=== PATIENT | female | born 1965 | race Caucasian/White ===

== ENCOUNTER → 2018-12-23 | Outpatient (CLI) | payer BC, OTHER ==
--- NOTE | 2018-12-24 11:29 | Diagnostic Imaging Report ---
INDICATION: Routine screening. COMPARISON: 12/17/2015. TECHNIQUE: 2D and 3D bilateral screening mammography was performed with CAD. FINDINGS: Both breasts are heterogeneously dense, limiting the sensitivity of mammography. The right breast is unremarkable. There is a new circumscribed density in the inner aspect of the left breast at mid to posterior depth approximately 9 cm from the nipple. Ultrasound of this area is recommended. No other masses are seen. No suspicious calcifications are identified. IMPRESSION: Circumscribed density at approximately the 3 o'clock location of the left breast 9 cm from the nipple, new since the prior exam. This has fairly benign features but further evaluation with ultrasound is recommended. ACR BI-RADS Category 0: Incomplete. (Needs additional imaging evaluation). Result letter will be mailed to the patient. Note: At least 10% of breast cancer is not imaged by mammography. Dictated by: Dictated on workstation # [id number]
== END ==
LOC: RAD 15:49
PROVIDERS: ATTEND Nurse Practitioner Primary Care
DX: Z12.31 Encounter for screening mammogram for malignant neoplasm of breast (principal)
CPT/HCPCS: 77067

== ENCOUNTER → 2019-01-05 | Outpatient (CLI) | payer BC ==
--- NOTE | 2019-01-05 18:22 | Diagnostic Imaging Report ---
EXAMINATION: Ultrasound of the left breast limited. INDICATION: Abnormal mammogram. FINDINGS: On this exam, there is a fairly well-defined 0.5 x 0.5 x 0.8 cm avascular hypoechoic area with internal echoes in this region. I suspect that this does correspond to the density seen on the mammogram. This hypoechoic lesion does contain a few internal echoes and I suspect that this is a cyst which has been slightly complicated by infection and/or hemorrhage. Even so, it may prove worthwhile to have a short-term (three-month) follow-up mammogram and ultrasound exam of the left breast for continued evaluation. No other abnormality is identified. IMPRESSION: The newly developed nodular density in the medial aspect of the left breast is felt to represent a slightly complicated cyst. Recommendations as above. ACR BI-RADS Category 3: Probably benign findings. Dictated by: Dictated on workstation # [id number]
== END ==
LOC: RAD 10:08
PROVIDERS: ATTEND Nurse Practitioner Primary Care
DX: R92.2 Inconclusive mammogram (principal)
CPT/HCPCS: 76642

== ENCOUNTER → 2019-01-25 | Outpatient (CLI) | payer BC ==
--- NOTE | 2019-01-25 18:26 | Diagnostic Imaging Report ---
INDICATION: Low back pain, fall. TIME OF EXAM: 05:57 p.m. FINDINGS: There is normal lordotic curvature to the lumbar spine. There is minimal retrolisthesis of L2 on L3 and L3 on L4. Vertebral body heights are maintained. No definite acute compression fracture is identified. Generalized degenerative disc disease is seen with variable disc space narrowing and marginal spurring. IMPRESSION: Lumbar spondylosis. No acute bony abnormality is detected. Dictated by: Dictated on workstation # [id number]
--- NOTE | 2019-01-25 18:30 | Diagnostic Imaging Report ---
INDICATION: Fall and left hip pain. TIME OF EXAM: 6:00 p.m. FINDINGS: Two views of the left hip demonstrate normal femoral acetabular alignment. Joint spaces are well maintained. Femoral head and neck are intact. No fractures are seen. IMPRESSION: No acute bony abnormality is detected. Dictated by: Dictated on workstation # [id number]
== END ==
LOC: RAD 17:35
PROVIDERS: ATTEND Family Medicine
DX: M25.552 Pain in left hip (principal); M47.816 Spondylosis without myelopathy or radiculopathy, lumbar region; W19.XXXA Unspecified fall, initial encounter
CPT/HCPCS: 72100; 73502

== ENCOUNTER → 2019-03-14 | Outpatient (CLI) | payer BC ==
--- NOTE | 2019-03-14 13:09 | Diagnostic Imaging Report ---
PROCEDURE: US Non-OB pelvis comp/trans. TECHNIQUE: Multiple real-time grayscale images were obtained of the pelvis in various projections endovaginally. Transabdominal imaging was also performed. INDICATION: Uterine leiomyoma. COMPARISON: Correlation is made with prior ultrasound from 12/17/2015. FINDINGS: Uterus measures 6.0 x 3.8 x 5.1 cm. Endometrium is 3 mm in thickness. Fibroid in the anterior fundal region is slightly smaller in size on today's exam measuring 1.1 x 0.6 x 1.4 cm. No other uterine masses are seen. Ovaries were not visualized. No adnexal mass or free fluid is seen. IMPRESSION: 1. Uterine fibroid, smaller when compared with exam from 12/17/2015. 2. Nonvisualized ovaries. Dictated by: Dictated on workstation # [id number]
== END ==
LOC: RAD 12:19
PROVIDERS: ATTEND Nurse Practitioner Primary Care
DX: D25.9 Leiomyoma of uterus, unspecified (principal)
CPT/HCPCS: 76830; 76856

== ENCOUNTER → 2020-02-09 | Outpatient (CLI) | payer BC ==
--- NOTE | 2020-02-09 13:02 | Diagnostic Imaging Report ---
INDICATION: Bilateral breast pain. Correlation is made with prior mammogram from 12/23/2018 and 12/17/2015. 2-D and 3-D bilateral diagnostic mammography was performed with CAD. Both breasts remain heterogeneously dense limiting the sensitivity of mammography. Previously noted circumscribed density in the inner left breast is again noted and is similar to perhaps slightly larger when compared with prior exam. No new mass is identified. No malignant appearing microcalcifications are seen. Axillae are unremarkable. IMPRESSION: BI-RADS 0 1. Slight increase in size of circumscribed nodule in the inner left breast when compared to study from one year earlier. This was shown by prior ultrasound to probably represent a complicated cyst and follow-up is recommended. Patient failed to return for follow-up. Ultrasound of this lesion will be performed today. In addition, sonographic evaluation of areas of patient's bilateral breast pain will be performed. ACR BI-RADS Category 0: Incomplete. (Needs additional imaging evaluation). Result letter will be mailed to the patient. Note: At least 10% of breast cancer is not imaged by mammography. Dictated by: Dictated on workstation # [id number]
--- NOTE | 2020-02-09 13:56 | Diagnostic Imaging Report ---
Indication: Bilateral breast pain. In addition, follow-up of previously noted left breast nodule will be performed. Correlation is made with diagnostic mammogram earlier same day as well as prior left breast ultrasound from 01/05/2019. Right breast: Interrogation of the outer right breast was performed at areas of pain. No sonographic abnormality seen. No solid or cystic mass is detected. Left breast: Evaluation of the outer left breast at area of pain was performed. No sonographic abnormality is seen. Medial left breast was evaluated. Previously noted hypoechoic nodule 9:30 location, 7 cm from the nipple is again noted. This does measure slightly larger in size at 10 mm x 7 mm x 7 mm compared with 8 mm x 5 mm x 6 mm. No internal vascularity is seen. No posterior acoustic shadowing is seen. IMPRESSION: BI-RADS Category 4 Slight increase in size of somewhat ill-defined hypoechoic nodule 9:30 location of the left breast, 7; the nipple. Tissue sampling is recommended. This would be amenable to ultrasound-guided core biopsy. ACR BI-RADS Category 4: Suspicious abnormality. Dictated by: Dictated on workstation # [id number]
== END ==
LOC: RAD 11:43
PROVIDERS: ATTEND Nurse Practitioner Primary Care
DX: N63.22 Unspecified lump in the left breast, upper inner quadrant (principal)
CPT/HCPCS: 76642; 77066

== ENCOUNTER → 2020-02-13 | Outpatient (CLI) | payer SELFPAY ==
[~2020-02-13] VITALS: Ht 167.7 cm; Wt 79.1 kg
[~2020-02-13] MED LIST: LIDOCAINE 1% INJ 20 ML 20 ML VIAL INJ ONE; LIDOCAINE 1% INJ 20 ML 20 ML VIAL ONE
--- NOTE | 2020-02-13 10:17 | Diagnostic Imaging Report ---
INDICATION: Left breast nodule. Patient presents for ultrasound-guided biopsy. Patient was brought to the procedure room and placed on table in supine position. Ultrasound imaging of the left breast was performed to evaluate appropriate entry site. Left breast was then prepped and draped in the usual sterile fashion. A small amount of 1% lidocaine was utilized for local anesthesia. Multiple core biopsies of the hypoechoic nodule at the 9:30 location of the left breast, 7 cm from the nipple were obtained utilizing the 13-gauge handheld mammotome vacuum-assisted device. Needle was removed and a marker clip was then deployed. Hemostasis was obtained using manual compression. Patient tolerated the procedure well and was sent for post procedure mammogram in satisfactory condition. IMPRESSION: Successful ultrasound-guided core biopsy of the hypoechoic nodule 9:30 location left breast, 7 cm from the nipple utilizing vacuum-assisted device. Pathology results are currently pending. Dictated by: Dictated on workstation # [id number]
--- NOTE | 2020-02-13 13:35 | Diagnostic Imaging Report ---
INDICATION: Left breast nodule. Patient is status post ultrasound-guided biopsy. FINDINGS: Unilateral left 2D CC and ML mammography was performed status post left breast biopsy. There is a marker clip in the medial posterior left breast at the site of the previously noted nodule. The patient is status post ultrasound-guided core biopsy. IMPRESSION: Post biopsy changes in the medial left breast with a marker clip in place. Dictated by: Dictated on workstation # [id number]
== END ==
LOC: RAD 08:47
PROVIDERS: ATTEND Nurse Practitioner Primary Care
DX: N63.20 Unspecified lump in the left breast, unspecified quadrant (principal); R92.8 Other abnormal and inconclusive findings on diagnostic imaging of breast
CPT/HCPCS: 19083